=== PATIENT | male | born 1980 | race Two or more races ===

== ENCOUNTER 2022-01-21 20:31 | Inpatient (IN) | payer SELFPAY ==
[~2022-01-21] VITALS: Ht 180.3 cm; Wt 95.5 kg
[2022-01-21] MEDS ORDERED: IV NORMAL SALINE 1000ML BAG 1,000 ML IV ONE ×2 (21:00→22:00)
[2022-01-21 21:02] LABS: BASO % 0 % (0-3); EOS % 0 % (0-3); HEMATOCRIT 29.3 % (39.0-53.0); HEMOGLOBIN 10.4 g/dL (13.0-17.5); LYMPH # 0.3 x10^3/uL (1.0-4.8); LYMPH % 10 % (24-48); MEAN CORPUSCULAR HEMOGLOBIN 34 pg (25-35); MEAN CORPUSCULAR HGB CONC 35 g/dL (31-37); MEAN CORPUSCULAR VOLUME 96 fL (79-100); MONO # 0.3 x10^3/uL (0.0-1.1); MONO % 9 % (0-9); NEUT # 2.6 x10^3/uL (1.8-7.7); NEUT % 81 % (31-73); PLATELET COUNT 56 x10^3/uL (140-400); RED BLOOD COUNT 3.06 x10^6/uL (4.30-5.70); RED CELL DISTRIBUTION WIDTH 12.8 % (11.5-14.5); WHITE BLOOD COUNT 3.3 x10^3/uL (4.0-11.0)
[2022-01-21 21:14] LABS: PROTHROMBIN TIME PATIENT 19.7 SEC (11.7-14.0)
[2022-01-21 21:19] LABS: CALCIUM 9.2 mg/dL (8.5-10.1); CREATININE 1.4 mg/dL (0.7-1.3); GFR 55.3; POTASSIUM 3.5 mmol/L (3.5-5.1)
--- NOTE | 2022-01-21 21:23 | RAD ---
Exam: Lumbar spine 4 views. Pelvis one view INDICATION: Lower back, pain TECHNIQUE: Frontal, lateral, bilateral oblique views lumbar spine. Frontal view of the pelvis Comparisons: None FINDINGS: Lumbar spine: Vertebral body heights and alignment are well-maintained. No significant osteophytic neural foraminal stenosis identified. There is mild bilateral facet arthro elmo in the lower lumbar spine. Visualized paraspinal soft tissues are unremarkable. Pelvis: Bone mineralization is normal. No acute or healed fractures. Soft tissues are unremarkable. Joint spa shahana are well-maintained. IMPRESSION: 1. Mild spondylotic changes lumbar spine. 2. No acute osseous abnormality of the pelvis Electronically signed by: Obed Turcios MD (01/21/2022 9:20 PM) [facility]
[2022-01-21 21:25] LABS: ALBUMIN 3.1 g/dL (3.4-5.0); ALBUMIN/GLOBULIN RATIO 0.5 (1.0-1.7); MAGNESIUM 1.7 mg/dL (1.8-2.4); TOTAL BILIRUBIN 3.7 mg/dL (0.2-1.0); TOTAL PROTEIN 8.8 g/dL (6.4-8.2)
--- NOTE | 2022-01-21 21:32 | PHYS DOC ---
Past Medical History Past Surgical History: No Surgical History Alcohol Use: Occasionally Drug Use: None General Adult EDM: Chief Complaint: SYNCOPE HPI: HPI: Patient is a 41 year old presented to ER for evaluation of head injury. Patient said he was walking in the parking lot at the apartment complex, he was on the phone talking with his friend, patient suddenly started shaking and then fell backward hit his head. Patient woke up on the floor. Patient complaining of headache, low back pain and pelvic pain. Patient denies any chest pain, no abdominal pain, no nausea vomiting. Patient claimed that he drinks alcohol socially, he stopped drinking about 1 week ago. However patient appeared to be very jaundiced Review of Systems: Review of Systems: Constitutional: Denies fever or chills. [] Eyes: Denies change in visual acuity. [] HENT: Denies nasal congestion or sore throat. [] Respiratory: Denies cough or shortness of breath. [] Cardiovascular: Denies chest pain or edema. [] GI: Denies abdominal pain, nausea, vomiting, bloody stools or diarrhea. [] : Denies dysuria. [] Musculoskeletal: Positive for low back pain Integument: Denies rash. [] Neurologic: Positive for headache, no focal weakness or numbness Endocrine: Denies polyuria or polydipsia. [] Lymphatic: Denies swollen glands. [] Psychiatric: Denies depression or anxiety. [] Heart Score: C/O Chest Pain: N/A Risk Factors: Risk Factors: DM, Current or recent (<one month) smoker, HTN, HLP, family history of CAD, obesity. Risk Scores: Score 0 - 3: 2.5% MACE over next 6 weeks - Discharge Home Score 4 - 6: 20.3% MACE over next 6 weeks - Admit for Clinical Observation Score 7 - 10: 72.7% MACE over next 6 weeks - Early Invasive Strategies Current Medications: Current Medications Medications (Trade) Dose Ordered Sig/Maritza Start Time Stop Time Status Last Admin Dose Admin Sodium Chloride 1,000 ml @ 1,000 mls/hr 1X ONCE 01/21/22 21:00 01/21/22 21:59 Allergies: Allergies: Allergies Coded Allergies Type Severity Reaction Last Updated Verified No Known Drug Allergies 01/21/22 No Physical Exam: PE: Constitutional: Well developed, well nourished, no acute distress, non-toxic appearance. [] HENT: Normocephalic, LARGE AREA OF SCALP CONTUSION IN OCCIPITAL AREA, bilateral external ears normal, oropharynx moist, no oral exudates, nose normal. Tongue abrasion. Eyes: PERRLA, EOMI, conjunctiva icterus, no discharge. [] Neck: Normal range of motion, no tenderness, supple, no stridor. [] Cardiovascular: SINUS TACHYCARDIA, regular rhythm, no murmur [] Lungs & Thorax: Bilateral breath sounds clear to auscultation [] Abdomen: Bowel sounds normal, soft, no tenderness, no masses, no pulsatile masses. [] Skin: Warm, dry, moderately Back: There is tenderness to palpation at L5/S1 area, no CVA tenderness. [] Extremities: No tenderness, no cyanosis, no clubbing, ROM intact, no edema. [] Neurologic: Alert and oriented X 3, normal motor function, normal sensory function, no focal deficits noted. [] Psychologic: Affect normal, judgement normal, mood normal. Patient appeared anxious. Current Patient Data: Labs: Laboratory Tests Test 01/21/22 20:50 White Blood Count 3.3 x10^3/uL (4.0-11.0) L Red Blood Count 3.06 x10^6/uL (4.30-5.70) L Hemoglobin 10.4 g/dL (13.0-17.5) L Hematocrit 29.3 % (39.0-53.0) L Mean Corpuscular Volume 96 fL (79-100) Mean Corpuscular Hemoglobin 34 pg (25-35) Mean Corpuscular Hemoglobin Concent 35 g/dL (31-37) Red Cell Distribution Width 12.8 % (11.5-14.5) Platelet Count 56 x10^3/uL (140-400) L Neutrophils (%) (Auto) 81 % (31-73) H Lymphocytes (%) (Auto) 10 % (24-48) L Monocytes (%) (Auto) 9 % (0-9) Eosinophils (%) (Auto) 0 % (0-3) Basophils (%) (Auto) 0 % (0-3) Neutrophils # (Auto) 2.6 x10^3/uL (1.8-7.7) Lymphocytes # (Auto) 0.3 x10^3/uL (1.0-4.8) L Monocytes # (Auto) 0.3 x10^3/uL (0.0-1.1) Eosinophils # (Auto) 0.0 x10^3/uL (0.0-0.7) Basophils # (Auto) 0.0 x10^3/uL (0.0-0.2) Platelet Estimate Pending Prothrombin Time 19.7 SEC (11.7-14.0) H Prothrombin Time INR 1.7 (0.8-1.1) H Activated Partial Thromboplast Time 35 SEC (24-38) Sodium Level 133 mmol/L (136-145) L Potassium Level 3.5 mmol/L (3.5-5.1) Chloride Level 96 mmol/L (98-107) L Carbon Dioxide Level 27 mmol/L (21-32) Anion Gap 10 (6-14) Blood Urea Nitrogen 14 mg/dL (8-26) Creatinine 1.4 mg/dL (0.7-1.3) H Estimated GFR (Cockcroft-Gault) 55.3 BUN/Creatinine Ratio 10 (6-20) Glucose Level 182 mg/dL (70-99) H Calcium Level 9.2 mg/dL (8.5-10.1) Magnesium Level 1.7 mg/dL (1.8-2.4) L Total Bilirubin 3.7 mg/dL (0.2-1.0) H Aspartate Amino Transferase (AST) 63 U/L (15-37) H Alanine Aminotransferase (ALT) 27 U/L (16-63) Alkaline Phosphatase 121 U/L (46-116) H Troponin I High Sensitivity 15 ng/L (4-75) Total Protein 8.8 g/dL (6.4-8.2) H Albumin 3.1 g/dL (3.4-5.0) L Albumin/Globulin Ratio 0.5 (1.0-1.7) L Lipase 110 U/L (73-393) Ethyl Alcohol Level < 10 mg/dL (0-10) Laboratory Tests 01/21/22 20:50 Laboratory Tests 01/21/22 20:50 Vital Signs: Vital Signs Date Time Temp Pulse Resp B/P (MAP) Pulse Ox O2 Delivery O2 Flow Rate FiO2 01/21/22 20:33 98.8 93 18 136/76 (96) 100 Room Air 98.8 EKG: EKG: EKG was done at 2853, heart rate 87 bpm, sinus rhythm, no ST segment elevation. Radiology/Procedures: Radiology/Procedures: [][address] [address] IMAGING REPORT Signed PATIENT: KESHAWN JONES ACCOUNT: [id number] : 1980 LOCATION: ER AGE: 41 SEX: M EXAM STATUS: PRE ER ORD. PHYSICIAN: TAMELA SAMS DO REASON: lower back pain PROCEDURE: LUMBAR SPINE MIN 4V Exam: Lumbar spine 4 views. Pelvis one view INDICATION: Lower back, pain TECHNIQUE: Frontal, lateral, bilateral oblique views lumbar spine. Frontal view of the pelvis Comparisons: None FINDINGS: Lumbar spine: Vertebral body heights and alignment are well-maintained. No significant osteophytic neural foraminal stenosis identified. There is mild bilateral facet arthropathy in the lower lumbar spine. Visualized paraspinal soft tissues are unremarkable. Pelvis: Bone mineralization is normal. No acute or healed fractures. Soft tissues are unremarkable. Joint spaces are well-maintained. IMPRESSION: 1. Mild spondylotic changes lumbar spine. 2. No acute osseous abnormality of the pelvis Electronically signed by: Obed Gonzáles MD (01/21/2022 9:20 PM) [facility] DICTATED and SIGNED BY: OBDE GONZÁLES MD DATE: 01/21/222117 [address] [address] IMAGING REPORT Signed PATIENT: KESHAWN JONES ACCOUNT: [id number] : 1980 LOCATION: ER AGE: 41 SEX: M EXAM STATUS: PRE ER ORD. PHYSICIAN: TAMELA SAMS DO REASON: syncope, headache, neck pain PROCEDURE: CT HEAD AND CERVICAL SPINE WO Exam: CT head and cervical spine without contrast INDICATION: Syncope, headache TECHNIQUE: Sequential axial images through the head and cervical spine were obtained without the administration of IV contrast. Exposure: One or more of the following in the visualized dose reduction techniques were utilized for this examination: 1. Automated exposure control 2. Adjustment of the MA and/or KV according to patient size 3. Use of iterative of reconstructive technique Comparisons: None FINDINGS: Head No focal parenchymal lesion or hemorrhage is identified. There is no midline shift or sulcal effacement. No acute vascular territory infarction is identified. Shoemaker-white distinction is preserved. The ventricular system is within normal limits without compression hydrocephalus. The basal cisterns are well maintained. Extra cranial soft tissue scalp contusion overlying the right posterior parietal region. The visualized portions of the paranasal sinuses and mastoid air cells are well-pneumatized. No acute fractures. Cervical spine: Straightening of cervical spine which may positional. Vertebral body heights are well-maintained. Fracture to the cervical spine is not identified. No significant spondylotic change in cervical spine. Visualized paraspinal soft tissues are unremarkable. IMPRESSION: 1. Extra cranial soft tissue scalp contusion overlying the right posterior parietal region without underlying osseous or intracranial abnormality. 2. Negative CT C-spine for acute traumatic injury. Electronically signed by: Obed Gonzáles MD (01/21/2022 9:51 PM) [facility] DICTATED and SIGNED BY: OBED GONZÁLES MD DATE: 01/21/222146 Course & Med Decision Making: Course & Med Decision Making Pertinent Labs and Imaging studies reviewed. (See chart for details) Patient is a 41-year-old male who appears to have a seizure from alcohol withdrawal, he distracted by his head, CT head and C-spine did not show any acute problem. Patient appeared to be shaky and anxious in ER, patient was given Ativan IV. Patient will need to be admitted for further evaluation and treatment Dragon Disclaimer: Dragtravis Disclaimer: This electronic medical record was generated, in whole or in part, using a voice recognition dictation system. Departure Departure Impression: Primary Impression: Alcohol withdrawal seizure Additional Impressions: Alcoholic hepatitis Hypomagnesemia Disposition: ADMITTED INPATIENT Admitting Physician: ANGEL (DR. MISTY DODSON) Condition: IMPROVED TAMELA SAMS DO January 21, 2022 21:32
[2022-01-21 21:47] LABS: % BANDS 2 % (0-9); % LYMPHS 12 % (24-48); % MONOS 7 % (0-10); % SEGS 79 % (35-66); PLT ESTIMATE DECREASED (ADEQUATE)
--- NOTE | 2022-01-21 21:53 | RAD ---
Exam: CT head and cervical spine without contrast INDICATION: Syncope, headache TECHNIQUE: Sequential axial images through the head and cervical spine were obtained without the admi nistration of IV contrast. Exposure: One or more of the following in the visualized dose reduction techniques were utilized for this examination: 1. Automated exposure control 2. Adjustment of the MA and/or KV according to patient size 3. Use of iterative of reconstructive technique Comparisons: None FINDINGS: Head No focal parenchymal lesion or hemorrhage is identified. There is no midline shift or sulcal effaceme nt. No acute vascular territory infarction is identified. Shoemaker-white distinction is preserved. The ventricular system is within normal limits without compression hydrocephalus. The basal cisterns are well maintained. Extra cranial soft tissue scalp contusion overlying the right posterior parietal region. The visualiz ed portions of the paranasal sinuses and mastoid air cells are well-pneumatized. No acute fractures. Cervical spine: Straightening of cervical spine which may positional. Vertebral body heights are well-maintained. Fracture to the cervical spine is not identified. No significant spondylotic change in cervical spine. Visualized paraspinal soft tissues are unremarkable. IMPRESSION: 1. Extra cranial soft tissue scalp contusion overlying the right posterior parietal region without u nderlying osseous or intracranial abnormality. 2. Negative CT C-spine for acute traumatic injury. Electronically signed by: Obed Turcios MD (01/21/2022 9:51 PM) [facility]
[2022-01-21] MEDS ORDERED: MAGNESIUM SULFATE 1GM 100 ML IV ONE (22:00)
[2022-01-21] MEDS ORDERED: ONDANSETRON PF 4 MG/2 ML VIAL. IVP PRN (23:15)
[2022-01-21 23:20] LABS: BACTERIA,URINE 0 /HPF (0-FEW); RBC,URINE OCC /HPF (0-2)
[2022-01-21 23:21] LABS: BARBITURATES NEG (NEG); BENZODIAZEPINES NEG (NEG); CANNABINOIDS NEG (NEG); COCAINE NEG (NEG); HYALINE CASTS, URINE MODERATE /HPF; METHADONE NEG (NEG); OPIATES NEG (NEG); PHENCYCLIDINE NEG (NEG)
[2022-01-21 23:22] LABS: AMPHETAMINE/METHAMPHETAMINE NEG (NEG)
[2022-01-21] MEDS ORDERED: KETOROLAC 15 MG/ML VIAL. IVP ONE (23:30)
[2022-01-21] MEDS ORDERED: MULTIVIT INFUSN,ADULT 4,VIT K 10 ML, THIAMINE INJ 100 MG, FOLIC ACID INJ 1 MG in IV NOR... IV ONE (23:30)
[2022-01-21 23:55] VITALS: BP 140/78
[2022-01-22] MEDS ORDERED: diphenhydrAMINE 50 MG/ML VIAL IVP PRN ×2 (00:30→08:15)
[2022-01-22] MEDS ORDERED: cloNIDine HCL 0.1 MG TABLET PO PRN (00:30)
[2022-01-22] MEDS ORDERED: traMADol 50 MG TABLET PO PRN (00:30)
[2022-01-22] MEDS ORDERED: HALOPERIDOL LACTATE 5 MG/ML VIAL. IVP PRN ×2 (00:30→08:15)
[2022-01-22 03:38] VITALS: BP 122/71
[2022-01-22 07:00] VITALS: BP 129/66
--- NOTE | 2022-01-22 07:34 | EKG ---
[facility] [address] [place] [address] Test Date: 2022-01-21 Test Time: 20:53:11 Pat Name: KESHAWN JONES Department: Room: 538 1 Gender: M Round Up Ring Hand: : 1980 Requested By: TAMELA SAMS Order Number: [id number] Reading MD: Chuckie Hopkins MD Measurements Intervals [place] Rate: 87 P: -41 NC: 142 QRS: 11 QRSD: 102 T: 65 QT: 380 QTc: 458 Interpretive Statements SINUS RHYTHM Electronically Signed On 01-26-2022 9:08:03 CDT by Chuckie oHpkins MD
--- NOTE | 2022-01-22 08:11 | PDOC1 ---
History and Physical Date of Admission Date of Admission DATE: 01/22/22 TIME: 07:55 Identification/Chief Complaint Chief Complaint Fall Source Source: Chart review, Patient History of Present Illness History of Present Illness Patient is a 41-year-old male with past medical history alcohol abuse, presents to the ED for evaluation of head injury. States he was walking in his apartment complex parking lot when he started shaking slightly and fell backwards hitting his head. Reports loss of consciousness as well. He woke up with a period of confusion for some time after, and complaints of headache, lower back pain, and pelvic pain. Denies any chest pain, nausea, or vomiting. States he drinks alcohol socially, and his last drink was about 1 week ago. Denies any history of alcohol withdrawal seizures. Past Medical History Past Medical History Alcohol abuse Past Surgical History Past Surgical History Abdominal abscess surgery Family History Family History Denies family history Social History Smoke: No ALCOHOL: other (Quit alcohol 1 week ago) Drugs: None Current Problem List Problem List Problems Medical Problems: (1) Alcohol withdrawal seizure Status: Acute (2) Alcoholic hepatitis Status: Acute (3) Hypomagnesemia Status: Acute Current Medications Current Medications Current Medications Sodium Chloride 1,000 ml @ 1,000 mls/hr 1X ONCE IV Last administered on 01/21/22at 21:47; Start 01/21/22 at 21:00; Stop 01/21/22 at 22:00; Status DC Sodium Chloride 1,000 ml @ 1,000 mls/hr 1X ONCE IV Last administered on 01/21/22at 21:47; Start 01/21/22 at 22:00; Stop 01/21/22 at 22:59; Status DC Magnesium Sulfate/ Dextrose 100 ml @ 100 mls/hr 1X ONCE IV Last administered on 01/21/22at 21:46; Start 01/21/22 at 22:00; Stop 01/21/22 at 22:59; Status DC Lorazepam (Ativan Inj) 2 mg 1X ONCE IVP Last administered on 01/21/22at 22:52; Start 01/21/22 at 23:30; Stop 01/21/22 at 23:31; Status DC Ketorolac Tromethamine (Toradol 15mg Vial) 15 mg 1X ONCE IVP Last administered on 01/21/22at 22:52; Start 01/21/22 at 23:30; Stop 01/21/22 at 23:31; Status DC Multivitamins 10 ml/Thiamine HCl 100 mg/Folic Acid 1 mg/Sodium Chloride 1,011.2 ml @ 1,000.088 mls/hr 1X ONCE IV Last administered on 01/21/22at 23:01; Start 01/21/22 at 23:30; Stop 01/22/22 at 00:30; Status DC Ondansetron HCl (Zofran) 4 mg PRN Q8HRS PRN IVP NAUSEA/VOMITING 1ST CHOICE; Start 01/21/22 at 23:15; Stop 01/22/22 at 23:14 Tramadol HCl (Ultram) 50 mg PRN Q6HRS PRN PO MODERATE PAIN 4-6 Last administered on 01/22/22at 00:43; Start 01/22/22 at 00:30 Multivitamins 10 ml/Thiamine HCl 100 mg/Folic Acid 1 mg/Sodium Chloride 1,011.2 ml @ 100 mls/ hr DAILY IV ; Start 01/22/22 at 09:00; Stop 01/26/22 at 19:07 Lorazepam (Ativan Inj) 2 mg PRN Q1HR PRN IV For CIWA 8-14; Start 01/22/22 at 00:30 Lorazepam (Ativan Inj) 4 mg PRN Q1HR PRN IV For CIWA 15 or greater; Start 01/22/22 at 00:30 Haloperidol Lactate (Haldol Inj) 5 mg PRN Q4HRS PRN IVP Hallucinatns,Confusn,Delirium; Start 01/22/22 at 00:30 Diphenhydramine HCl (Benadryl) 25 mg PRN Q15MIN PRN IVP EPS symptoms 2'Haldol admin; Start 01/22/22 at 00:30 Clonidine HCl (Catapres) 0.1 mg PRN Q1HR PRN PO SBP > 180 or DBP > 100, MRX3; Start 01/22/22 at 00:30 Allergies Allergies: Coded Allergies: No Known Drug Allergies (Unverified , 01/21/22) ROS Review of System GENERAL: Fall. No history of weight change, weakness or fevers. SKIN: No bruising, hair changes or rashes. EYES: No blurred, double or loss of vision. NOSE AND THROAT: No history of nosebleeds, hoarseness or sore throat. HEART: Denies chest pain, denies palpitations. LUNGS: Denies cough, hemoptysis, wheezing or shortness of breath. GASTROINTESTINAL: Denies nausea, vomiting, abdominal pain. GENITOURINARY: Denies dysuria, frequency, urgency, hematuria. NEUROLOGIC: Likely alcohol withdrawal seizure denies history of numbness, tingling, tremor or weakness. PSYCHIATRIC: Denies anxiety, denies depression. ENDOCRINE: No history of heat or cold intolerance, polyuria or polydipsia. EXTREMITIES: Denies muscle weakness, joint pain, pain on walking or stiffness. Physical Exam Physical Exam General: Alert, Oriented X3, Cooperative, No acute distress HEENT: Posterior scalp contusion. PERRLA, EOMI Lungs: Clear to auscultation, Normal air movement Heart: RRR, no murmurs Cardiovascular: S1, S2 Abdomen: Normal bowel sounds, Soft, No tenderness Extremities: No clubbing, No cyanosis Skin: Superficial abrasions to face. No rashes, No significant lesion Neuro: Slightly tremulous. Normal speech, Normal tone, Sensation intact Psych/Mental Status: Mental status NL, Mood NL Vitals Vitals Vital Signs Date Time Temp Pulse Resp B/P (MAP) Pulse Ox O2 Delivery O2 Flow Rate FiO2 01/22/22 03:38 98.1 81 20 122/71 (88) 98 Room Air 98.1 Labs Labs Laboratory Tests Test 01/21/22 20:50 01/21/22 23:02 White Blood Count 3.3 x10^3/uL (4.0-11.0) Red Blood Count 3.06 x10^6/uL (4.30-5.70) Hemoglobin 10.4 g/dL (13.0-17.5) Hematocrit 29.3 % (39.0-53.0) Mean Corpuscular Volume 96 fL (79-100) Mean Corpuscular Hemoglobin 34 pg (25-35) Mean Corpuscular Hemoglobin Concent 35 g/dL (31-37) Red Cell Distribution Width 12.8 % (11.5-14.5) Platelet Count 56 x10^3/uL (140-400) Neutrophils (%) (Auto) 81 % (31-73) Lymphocytes (%) (Auto) 10 % (24-48) Monocytes (%) (Auto) 9 % (0-9) Eosinophils (%) (Auto) 0 % (0-3) Basophils (%) (Auto) 0 % (0-3) Neutrophils # (Auto) 2.6 x10^3/uL (1.8-7.7) Lymphocytes # (Auto) 0.3 x10^3/uL (1.0-4.8) Monocytes # (Auto) 0.3 x10^3/uL (0.0-1.1) Eosinophils # (Auto) 0.0 x10^3/uL (0.0-0.7) Basophils # (Auto) 0.0 x10^3/uL (0.0-0.2) Segmented Neutrophils % 79 % (35-66) Band Neutrophils % 2 % (0-9) Lymphocytes % 12 % (24-48) Monocytes % 7 % (0-10) Platelet Estimate Decreased (ADEQUATE) Prothrombin Time 19.7 SEC (11.7-14.0) Prothromb Time International Ratio 1.7 (0.8-1.1) Activated Partial Thromboplast Time 35 SEC (24-38) Sodium Level 133 mmol/L (136-145) Potassium Level 3.5 mmol/L (3.5-5.1) Chloride Level 96 mmol/L (98-107) Carbon Dioxide Level 27 mmol/L (21-32) Anion Gap 10 (6-14) Blood Urea Nitrogen 14 mg/dL (8-26) Creatinine 1.4 mg/dL (0.7-1.3) Estimated GFR (Cockcroft-Gault) 55.3 BUN/Creatinine Ratio 10 (6-20) Glucose Level 182 mg/dL (70-99) Calcium Level 9.2 mg/dL (8.5-10.1) Magnesium Level 1.7 mg/dL (1.8-2.4) Total Bilirubin 3.7 mg/dL (0.2-1.0) Aspartate Amino Transf (AST/SGOT) 63 U/L (15-37) Alanine Aminotransferase (ALT/SGPT) 27 U/L (16-63) Alkaline Phosphatase 121 U/L (46-116) Troponin I High Sensitivity 15 ng/L (4-75) Total Protein 8.8 g/dL (6.4-8.2) Albumin 3.1 g/dL (3.4-5.0) Albumin/Globulin Ratio 0.5 (1.0-1.7) Lipase 110 U/L (73-393) Ethyl Alcohol Level < 10 mg/dL (0-10) Urine Collection Type Unknown Urine Color (Auto) Yellow Urine Turbidity Clear Urine pH (Auto) 6.5 (<5.0-8.0) Urine Specific [place] 1.008 (1.000-1.030) Urine Protein (Auto) 30 mg/dL (Negative) Urine Glucose (Auto)(UA) Negative mg/dL (Negative) Urine Ketones (Auto) Negative mg/dL (Negative) Urine Blood (Auto) Small (Negative) Urine Nitrite Negative (Negative) Urine Bilirubin (Auto) Negative (Negative) Urine Urobilinogen (Auto) Normal mg/dL (Normal) Urine Leukocyte Esterase (Auto) Negative (Negative) Urine RBC Occ /HPF (0-2) Urine WBC 1-4 /HPF (0-4) Urine Squamous Epithelial Cells Occ /LPF Urine Bacteria 0 /HPF (0-FEW) Urine Hyaline Casts Moderate /HPF Urine Mucus Slight /LPF Urine Opiates Screen Neg (NEG) Urine Methadone Screen Neg (NEG) Urine Barbiturates Neg (NEG) Urine Phencyclidine Screen Neg (NEG) Urine Amphetamine/Methamphetamine Neg (NEG) Urine Benzodiazepines Screen Neg (NEG) Urine Cocaine Screen Neg (NEG) Urine Cannabinoids Screen Neg (NEG) Urine Ethyl Alcohol Neg (NEG) Laboratory Tests Test 01/21/22 20:50 01/21/22 23:02 White Blood Count 3.3 x10^3/uL (4.0-11.0) Red Blood Count 3.06 x10^6/uL (4.30-5.70) Hemoglobin 10.4 g/dL (13.0-17.5) Hematocrit 29.3 % (39.0-53.0) Mean Corpuscular Volume 96 fL (79-100) Mean Corpuscular Hemoglobin 34 pg (25-35) Mean Corpuscular Hemoglobin Concent 35 g/dL (31-37) Red Cell Distribution Width 12.8 % (11.5-14.5) Platelet Count 56 x10^3/uL (140-400) Neutrophils (%) (Auto) 81 % (31-73) Lymphocytes (%) (Auto) 10 % (24-48) Monocytes (%) (Auto) 9 % (0-9) Eosinophils (%) (Auto) 0 % (0-3) Basophils (%) (Auto) 0 % (0-3) Neutrophils # (Auto) 2.6 x10^3/uL (1.8-7.7) Lymphocytes # (Auto) 0.3 x10^3/uL (1.0-4.8) Monocytes # (Auto) 0.3 x10^3/uL (0.0-1.1) Eosinophils # (Auto) 0.0 x10^3/uL (0.0-0.7) Basophils # (Auto) 0.0 x10^3/uL (0.0-0.2) Segmented Neutrophils % 79 % (35-66) Band Neutrophils % 2 % (0-9) Lymphocytes % 12 % (24-48) Monocytes % 7 % (0-10) Platelet Estimate Decreased (ADEQUATE) Prothrombin Time 19.7 SEC (11.7-14.0) Prothromb Time International Ratio 1.7 (0.8-1.1) Activated Partial Thromboplast Time 35 SEC (24-38) Sodium Level 133 mmol/L (136-145) Potassium Level 3.5 mmol/L (3.5-5.1) Chloride Level 96 mmol/L (98-107) Carbon Dioxide Level 27 mmol/L (21-32) Anion Gap 10 (6-14) Blood Urea Nitrogen 14 mg/dL (8-26) Creatinine 1.4 mg/dL (0.7-1.3) Estimated GFR (Cockcroft-Gault) 55.3 BUN/Creatinine Ratio 10 (6-20) Glucose Level 182 mg/dL (70-99) Calcium Level 9.2 mg/dL (8.5-10.1) Magnesium Level 1.7 mg/dL (1.8-2.4) Total Bilirubin 3.7 mg/dL (0.2-1.0) Aspartate Amino Transf (AST/SGOT) 63 U/L (15-37) Alanine Aminotransferase (ALT/SGPT) 27 U/L (16-63) Alkaline Phosphatase 121 U/L (46-116) Troponin I High Sensitivity 15 ng/L (4-75) Total Protein 8.8 g/dL (6.4-8.2) Albumin 3.1 g/dL (3.4-5.0) Albumin/Globulin Ratio 0.5 (1.0-1.7) Lipase 110 U/L (73-393) Ethyl Alcohol Level < 10 mg/dL (0-10) Urine Collection Type Unknown Urine Color (Auto) Yellow Urine Turbidity Clear Urine pH (Auto) 6.5 (<5.0-8.0) Urine Specific [place] 1.008 (1.000-1.030) Urine Protein (Auto) 30 mg/dL (Negative) Urine Glucose (Auto)(UA) Negative mg/dL (Negative) Urine Ketones (Auto) Negative mg/dL (Negative) Urine Blood (Auto) Small (Negative) Urine Nitrite Negative (Negative) Urine Bilirubin (Auto) Negative (Negative) Urine Urobilinogen (Auto) Normal mg/dL (Normal) Urine Leukocyte Esterase (Auto) Negative (Negative) Urine RBC Occ /HPF (0-2) Urine WBC 1-4 /HPF (0-4) Urine Squamous Epithelial Cells Occ /LPF Urine Bacteria 0 /HPF (0-FEW) Urine Hyaline Casts Moderate /HPF Urine Mucus Slight /LPF Urine Opiates Screen Neg (NEG) Urine Methadone Screen Neg (NEG) Urine Barbiturates Neg (NEG) Urine Phencyclidine Screen Neg (NEG) Urine Amphetamine/Methamphetamine Neg (NEG) Urine Benzodiazepines Screen Neg (NEG) Urine Cocaine Screen Neg (NEG) Urine Cannabinoids Screen Neg (NEG) Urine Ethyl Alcohol Neg (NEG) Images Images PATIENT: KESHAWN JONES ACCOUNT: [id number] : 1980 LOCATION: ER AGE: 41 SEX: M EXAM STATUS: PRE ER ORD. PHYSICIAN: TAMELA SAMS DO REASON: lower back pain PROCEDURE: LUMBAR SPINE MIN 4V Exam: Lumbar spine 4 views. Pelvis one view INDICATION: Lower back, pain TECHNIQUE: Frontal, lateral, bilateral oblique views lumbar spine. Frontal view of the pelvis Comparisons: None FINDINGS: Lumbar spine: Vertebral body heights and alignment are well-maintained. No significant osteophytic neural foraminal stenosis identified. There is mild bilateral facet arthropathy in the lower lumbar spine. Visualized paraspinal soft tissues are unremarkable. Pelvis: Bone mineralization is normal. No acute or healed fractures. Soft tissues are unremarkable. Joint spaces are well-maintained. IMPRESSION: 1. Mild spondylotic changes lumbar spine. 2. No acute osseous abnormality of the pelvis Electronically signed by: Obed Gonzáles MD (01/21/2022 9:20 PM) [facility] DICTATED and SIGNED BY: OBED GONZÁLES MD DATE: 01/21/222117 [facility] [address] [place] [address] IMAGING REPORT Signed PATIENT: KESHAWN JONES ACCOUNT: [id number] : 1980 LOCATION: ER AGE: 41 SEX: M EXAM STATUS: PRE ER ORD. PHYSICIAN: TAMELA SAMS DO REASON: syncope, headache, neck pain PROCEDURE: CT HEAD AND CERVICAL SPINE WO Exam: CT head and cervical spine without contrast INDICATION: Syncope, headache TECHNIQUE: Sequential axial images through the head and cervical spine were obtained without the administration of IV contrast. Exposure: One or more of the following in the visualized dose reduction techniques were utilized for this examination: 1. Automated exposure control 2. Adjustment of the MA and/or KV according to patient size 3. Use of iterative of reconstructive technique Comparisons: None FINDINGS: Head No focal parenchymal lesion or hemorrhage is identified. There is no midline shift or sulcal effacement. No acute vascular territory infarction is identified. Shoemaker-white distinction is preserved. The ventricular system is within normal limits without compression hydrocephalus. The basal cisterns are well maintained. Extra cranial soft tissue scalp contusion overlying the right posterior parietal region. The visualized portions of the paranasal sinuses and mastoid air cells are well-pneumatized. No acute fractures. Cervical spine: Straightening of cervical spine which may positional. Vertebral body heights are well-maintained. Fracture to the cervical spine is not identified. No significant spondylotic change in cervical spine. Visualized paraspinal soft tissues are unremarkable. IMPRESSION: 1. Extra cranial soft tissue scalp contusion overlying the right posterior parietal region without underlying osseous or intracranial abnormality. 2. Negative CT C-spine for acute traumatic injury. Electronically signed by: Obed Gonzáles MD (01/21/2022 9:51 PM) [facility] VTE Prophylaxis Ordered VTE Prophylaxis Devices: Yes VTE Pharmacological Prophylaxi: No Assessment/Plan Assessment/Plan Alcohol abuse Possible alcohol withdrawal seizure Alcoholic hepatitis UMBERTO due to vasomotor nephropathy Hypomagnesemia Moderate malnutrition Plan: Will admit patient on alcohol withdrawal protocol IV banana bag daily thiamine IV fluids Check hemoglobin A1c and lipids Replace electrolytes as needed FEN - Regular diet PPX - SCDs FULL CODE Dispo - inpatient for above Justifications for Admission Other Justification YESENIA PETER MD January 22, 2022 08:11
[2022-01-22] MEDS ORDERED: MAG HYDROX/ALUMINUM HYD/SIMETH 30 ML ORAL.SUSP PO PRN (08:15)
[2022-01-22] MEDS ORDERED: HYDROcodone/APAP 5/325MG 1 TAB TABLET PO PRN ×2 (08:15)
[2022-01-22] MEDS ORDERED: MAGNESIUM HYDROXIDE 2,400 MG/30 ML ORAL.SUSP. PO PRN (08:15)
[2022-01-22] MEDS ORDERED: CALCIUM CARBONATE 500 MG TAB.CHEW PO PRN (08:15)
[2022-01-22] MEDS ORDERED: ONDANSETRON PF 4 MG/2 ML VIAL. IVP PRN (08:15)
[2022-01-22] MEDS ORDERED: ACETAMINOPHEN 325 MG TABLET. PO PRN (08:15)
[2022-01-22] MEDS ORDERED: MULTIVIT INFUSN,ADULT 4,VIT K 10 ML, THIAMINE INJ 100 MG, FOLIC ACID INJ 1 MG in IV NOR... IV SCH ×2 (09:00)
[2022-01-22 11:00] VITALS: BP 121/60
--- NOTE | 2022-01-22 13:01 | NUR ---
SS following for discharge planning. SS reviewed pt chart an discussed with pt RN. Pt is from home and is currently on room air. Self pay. SS will continue to follow for discharge planning.
[2022-01-22 15:00] VITALS: BP 118/61
[2022-01-22 19:00] VITALS: BP 123/63
[2022-01-22 23:00] VITALS: BP 124/65
[2022-01-23 02:10] LABS: HEMOGLOBIN A1C 5.1 % (4.8-5.6)
[2022-01-23 03:00] VITALS: BP 122/69
[2022-01-23 06:00] LABS: CREATININE 0.6 mg/dL (0.7-1.3); POTASSIUM 3.2 mmol/L (3.5-5.1)
[2022-01-23 07:00] VITALS: BP 129/72
[2022-01-23] MEDS ORDERED: FOLIC ACID 1 MG TABLET. PO SCH (09:00)
[2022-01-23] MEDS ORDERED: THIAMINE 100 MG TABLET. PO SCH (09:00)
[2022-01-23] MEDS ORDERED: MULTIVITAMIN with MINERAL TABLET. PO SCH (09:00)
[2022-01-23] MEDS ORDERED: LORA-434 PO (10:22)
[2022-01-23 11:00] VITALS: BP 122/76
--- NOTE | 2022-01-23 12:41 | NUR ---
Discharge Note: LOLITA JONES [place] Discharge instructions and discharge home medications reviewed with Patient and a copy given. All questions have been answered and understanding verbalized. The following instructions and handouts were given: follow up instructions, prescription for Ativan, medication education Discontinued lines and drains: 18 gauge right AC, tip intact. patient tolerated well. Patient discharged to home with self care via family.
--- NOTE | 2022-01-24 19:21 | PDOC3 ---
[facility]-Discharge Summary Date of Admission: Date of Admission: January 22, 2022 Date of Discharge: Date of Discharge: January 23, 2022 Admission Diagnosis: Admitting Diagnosis: alcohol w/d Hospital Course: Hospital Course: istory of Present Illness Patient is a 41-year-old male with past medical history alcohol abuse, presents to the ED for evaluation of head injury. States he was walking in his apartment complex parking lot when he started shaking slightly and fell backwards hitting his head. Reports loss of consciousness as well. He woke up with a period of confusion for some time after, and complaints of headache, lower back pain, and pelvic pain. Denies any chest pain, nausea, or vomiting. States he drinks alcohol socially, and his last drink was about 1 week ago. Denies any history of alcohol withdrawal seizures. 01/23 Evaluate examined at bedside. No signs of withdrawal. No complaints to me. Said he is doing well. Discharge today. GRIN 30 minutes spent on discharge. 25 minutes advance care planning with him in regards to alcohol use Disposition: Disposition/Orders: D/C to Home Activity: Activity: Resume previous activity Diet: Diet: Regular Medications: Home Meds Active Scripts Lorazepam (ATIVAN) 1 Mg Tablet, 1 MG PO PRN QID PRN for ALCOHOL WITHDRAWAL for 5 Days, #20 TAB Prov:MISTY DODSON MD 01/23/22 Scheduled PRN Lorazepam (Ativan), 1 MG PO PRN QID PRN for ALCOHOL WITHDRAWAL Justicifation of Admission Dx: Justifications for Admission: Justification of Admission Dx: Yes (alcohol w/d) MISTY DODSON MD January 24, 2022 19:21
== END 2022-01-23 14:30 | disposition home or self-care (01) | DRG 100 ==
LOC: ER 20:31 → 5 NORTH 22:50
PROVIDERS: ADMIT Internal Medicine; ATTEND Internal Medicine
DX: G40.89 Other seizures (principal); N17.0 Acute kidney failure with tubular necrosis; F10.139 Alcohol abuse with withdrawal, unspecified; E44.0 Moderate protein-calorie malnutrition; K70.10 Alcoholic hepatitis without ascites; S00.03XA Contusion of scalp, initial encounter; E83.42 Hypomagnesemia; Z68.29 Body mass index [BMI] 29.0-29.9, adult; W18.39XA Other fall on same level, initial encounter; Y93.89 Activity, other specified; Y92.89 Other specified places as the place of occurrence of the external cause; Y99.8 Other external cause status
CPT/HCPCS: 36415; 70450; 72110; 72125; 72170; 80048; 80053; 80307; 81001; 83036; 83690; 83735; 84484; 85007; 85025; 85610; 85730; 93005; 96365; 96367; 96375; G0480; J1885; J2060; J3411; J3475; J3490; J7030; 99285-25; G0378